=== PATIENT | female | born 1970 | race Caucasian/White ===

== ENCOUNTER 2016-06-17 18:44 | Emergency (ER) | payer OTHER ==
[~2016-06-17] VITALS: Ht 160 cm; Wt 47.8 kg
[2016-06-17 18:46] VITALS: TEMP 36.4; Ht 160 cm; Wt 47.8 kg
[2016-06-17] MEDS ORDERED: ATV/1 PO (19:05)
[2016-06-17] MEDS ORDERED: VILA1TAB3 PO (19:05)
[2016-06-17] MEDS ORDERED: CEPH500C2 PO (19:05)
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
[2016-06-17 20:21] VITALS: BP 134/88; PULSE 88; O2SAT 96
== END 2016-06-17 20:23 | disposition home or self-care (01) ==
LOC: C.EDB 18:48 → MERGE 18:48 → C.EDD 20:23
DX: S60.551D Superficial foreign body of right hand, subsequent encounter (principal); W34.010D Accidental discharge of airgun, subsequent encounter; F17.210 Nicotine dependence, cigarettes, uncomplicated